=== PATIENT | female | born 1975 | race Caucasian/White ===

== ENCOUNTER 2023-09-30 18:01 | Emergency (ER) | payer OTHER ==
[~2023-09-30] VITALS: Ht 152.4 cm; Wt 77.1 kg
[2023-09-30 18:10] VITALS: BP_SYST 117; PULSE 64; RESP 19; TEMP 98; O2SAT 99
[2023-09-30] MEDS ORDERED: OLOP2.5D11 LEFT EYE (19:37)
[2023-09-30 19:48] VITALS: BP_SYST 117; PULSE 64; RESP 19; TEMP 98; O2SAT 99
== END 2023-09-30 19:48 | disposition home or self-care (01) ==
LOC: SED 18:01
DX: T26.82XA Corrosions of other specified parts of left eye and adnexa, initial encounter (principal); Z88.6 Allergy status to analgesic agent; Z88.8 Allergy status to other drugs, medicaments and biological substances; Z79.899 Other long term (current) drug therapy; X58.XXXA Exposure to other specified factors, initial encounter; Y93.89 Activity, other specified; Y92.89 Other specified places as the place of occurrence of the external cause; Y99.8 Other external cause status
CPT/HCPCS: 99282